=== PATIENT | male | born 1935 | race Caucasian/White ===

== ENCOUNTER 2017-08-11 01:16 | Inpatient (IN) | payer OTHER ==
[2017-08-11 02:16] LABS: ADD MAN DIFF? NO
[2017-08-11 02:19] LABS: WHITE BLOOD COUNT 5.2 10^3/ul (4.8-10.8)
[2017-08-11 02:19] LABS: BASOPHIL # 0.1 10^3/ul (0.0-0.1); EOSINOPHILS # 0.3 10^3/ul (0.0-0.5); EOSINOPHILS % 6.4 % (0.0-7.0); HEMATOCRIT 35.9 % (42.0-52.0); LYMPHOCYTES # 1.6 10^3/ul (0.8-2.9); LYMPHOCYTES % 30.9 % (15.0-51.0); MEAN CORPUSCULAR HEMOGLOBIN 29.8 pg (29.0-33.0); MEAN CORPUSCULAR HGB CONC 33.4 g/dl (32.0-37.0); MEAN CORPUSCULAR VOLUME 89.1 fl (82.0-101.0); MEAN PLATELET VOLUME 9.7 fl (7.4-10.4); MONOCYTE # 0.4 10^3/ul (0.3-0.9); MONOCYTES % 8.3 % (0.0-11.0); NEUTROPHIL # 2.7 10^3/ul (1.6-7.5); NEUTROPHILS % 53.2 % (39.0-77.0); PLATELET COUNT 206 10^3/UL (140-415); RED BLOOD COUNT 4.03 10^6/ul (4.70-6.10); RED CELL DISTRIBUTION WIDTH 13.6 % (11.5-14.5)
[2017-08-11 02:42] LABS: ALANINE AMINOTRANSFERASE 25 IU/L (13-69); ALBUMIN 4.1 g/dl (3.3-4.9); ALBUMIN/GLOBULIN RATIO 1.28; ALKALINE PHOSPHATASE 67 IU/L (42-121); ANION GAP 15 (8-16); ASPARTATE AMINO TRANSFERASE 28 IU/L (15-46); BILIRUBIN,INDIRECT 0.3 mg/dl (0-1.1); BILIRUBIN,TOTAL 0.3 mg/dl (0.2-1.3); BLOOD UREA NITROGEN 19 mg/dl (7-20); CALCIUM 8.9 mg/dl (8.4-10.2); CARBON DIOXIDE 29 mmol/L (21-31); CHLORIDE 106 mmol/L (97-110); CREATININE 0.84 mg/dl (0.61-1.24); GLUCOSE 93 mg/dl (70-220); POTASSIUM 3.9 mmol/L (3.5-5.1); SODIUM 146 mmol/L (135-144); TOTAL PROTEIN 7.3 g/dl (6.1-8.1)
[2017-08-11] MEDS: morphine 4 MG/ML VIAL IV (02:50)
[2017-08-11] MEDS: ONDANSETRON 4 MG INJ IV (02:50)
[2017-08-11 02:54] LABS: B-TYPE NATRIURETIC PEPTIDE 142 PG/ML (0-450)
[2017-08-11 03:03] LABS: TROPONIN-I < 0.012 ng/ml (0.000-0.120)
[2017-08-11] MEDS ORDERED: NACL 0.9% 3 ML SYG IV (05:00)
[2017-08-11] MEDS ORDERED: morphine 2 MG INJ IV (05:00)
[2017-08-11] MEDS ORDERED: ACETAMINOPHEN 325 MG TAB PO (05:00)
[2017-08-11] MEDS ORDERED: MECLIZINE 25 MG TAB PO (05:00)
[2017-08-11] MEDS ORDERED: ONDANSETRON 4 MG INJ IV (05:00)
[2017-08-11] MEDS ORDERED: NITROGLYCERIN (SL) 0.4 MG TAB SL (05:00)
[2017-08-11] MEDS ORDERED: ALBUTEROL/IPRATROPIUM (NEB) 3 ML AMP HHN (05:00)
[2017-08-11 06:48] LABS: CREATINE KINASE 89 IU/L (23-200)
[2017-08-11 07:00] LABS: CK INDEX 2.4
[2017-08-11 07:02] LABS: TROPONIN-I < 0.012 ng/ml (0.000-0.120)
[2017-08-11] MEDS: ASPIRIN 81 MG TAB PO (08:22)
[2017-08-11] MEDS: FAMOTIDINE 20 MG TAB PO (08:22)
[2017-08-11] MEDS: FLUTICASONE 0.05% 16 GM NAS SPRAY NASAL (08:23)
[2017-08-11] MEDS: ENOXAPARIN 40 MG/0.4 ML SYG SC (08:27)
[2017-08-11 13:46] LABS: FOLATE > 20.0 ng/ml (2.8-20.0)
[2017-08-11 14:19] LABS: CREATINE KINASE 83 IU/L (23-200)
[2017-08-11 14:23] LABS: D-DIMER 378.28 ng/ml (<460)
[2017-08-11 14:33] LABS: CK INDEX 2.1
[2017-08-11 14:34] LABS: CK-MB 1.72 ng/ml (0.0-2.4); TROPONIN-I < 0.012 ng/ml (0.000-0.120)
[2017-08-11] MEDS ORDERED: morphine LIQ (10 MG/5 ML) CUP PO (15:00)
== END 2017-08-11 16:28 | disposition home or self-care (01) | DRG 313 ==
LOC: E/R 01:16 → MS3 03:07
DX: R07.9 Chest pain, unspecified (principal); J44.9 Chronic obstructive pulmonary disease, unspecified; Z90.79 Acquired absence of other genital organ(s); N40.0 Benign prostatic hyperplasia without lower urinary tract symptoms
CPT/HCPCS: 36415; 71045; 80053; 82550; 82553; 82607; 82746; 83880; 84484; 85025; 85378; 93005; 93306; 96374; 96375; 99285-25